=== PATIENT | male | born 1955 | race Caucasian/White ===

== ENCOUNTER → 2020-11-02 | Outpatient (CLI) | payer OTHER ==
[~2020-11-02] MED LIST: AMLO-186 PO; HYDR-2759 PO; LISI20TA18 PO; PANT40TA77 PO
== END ==
LOC: LAB 13:59
PROVIDERS: ATTEND Surgery
DX: Z01.812 Encounter for preprocedural laboratory examination (principal); K40.90 Unilateral inguinal hernia, without obstruction or gangrene, not specified as recurrent; Z20.822 Contact with and (suspected) exposure to COVID-19
CPT/HCPCS: U0003; U0005

== ENCOUNTER 2020-11-05 07:17 | Day surgery (SDC) | payer OTHER ==
[2020-11-02 17:11] VITALS: BP 142/62
[2020-11-02 17:12] VITALS: BP 142/62
[~2020-11-05] VITALS: Ht 175.3 cm; Wt 83.5 kg
[~2020-11-05 07:17] MED LIST changes: -AMLO-186 PO; -HYDR-2759 PO; +HYDROmorphone 2 MG/ML VIAL IVP PRN; +IV RINGERS,LACTATED 1000ML 1,000 ML IV SCH; -LISI20TA18 PO; +MORPHINE SULFATE 2 MG/ML INJ. IVP PRN; -PANT40TA77 PO; +PROCHLORPERAZINE 10 MG/2 ML VIAL. IVP PRN; +fentaNYL PF VIAL 100 MCG/2 ML VIAL IVP PRN
[2020-11-05] MEDS ORDERED: BUPIVACAINE-EPI 0.5%-1:200000 MPF 30 ML VIAL. ONE (07:27)
[2020-11-05 07:53] VITALS: BP 130/60
[2020-11-05] MEDS ORDERED: ONDANSETRON PF 4 MG/2 ML VIAL. ONE (07:58)
[2020-11-05] MEDS ORDERED: LIDOCAINE 2% PF 5 ML VIAL. ONE (07:58)
[2020-11-05] MEDS ORDERED: PROPOFOL 10 MG/ML (20ML) VIAL. IV ONE (07:58)
[2020-11-05] MEDS ORDERED: ROCURONIUM 50 MG/5 ML VIAL. ONE (07:58)
[2020-11-05] MEDS ORDERED: DEXAMETHASONE SOD PHOS 4 MG/ML VIAL ONE (07:59)
[2020-11-05] MEDS ORDERED: PANT40TA77 PO (07:59)
[2020-11-05] MEDS ORDERED: LISI20TA18 PO (07:59)
[2020-11-05] MEDS ORDERED: AMLO-186 PO (07:59)
[2020-11-05] MEDS ORDERED: fentaNYL PF VIAL 100 MCG/2 ML VIAL ONE (08:32)
[2020-11-05] MEDS ORDERED: GLYCOPYRROLATE 1 MG/5 ML VIAL. ONE (09:59)
[2020-11-05] MEDS ORDERED: NEOSTIGMINE METHYLSULFATE 5 MG/5 ML SYRINGE. ONE (10:00)
[2020-11-05] MEDS ORDERED: KETOROLAC 30 MG/ML VIAL. ONE (10:37)
--- NOTE | 2020-11-05 11:04 | PDOC4 ---
Operative Note Operative Note Operative Note: Preoperative Diagnosis: Left inguinal hernia Postoperative Diagnosis: Same Procedure: Left inguinal hernia repair with mesh Surgeon: Mario Precinct Captain: SANDI De Jesus Anesthesia: General EBL: 40 mL Specimen: None Drains: None Complications: None Indication: The patient is a 65-year-old male who is referred with a left inguinal hernia. He was offered surgical repair. The risks of surgery were discussed which include bleeding, infection, recurrence, pain or numbness, anesthetic risk, potential need for additional surgery procedure. He understands and would like to proceed. Description: The patient was taken to the operating room and placed supine on the operating table. General anesthesia was performed. The left groin was shaved and prepped with ChloraPrep and draped in a standard surgical manner. An incision was made in the skin lines with a scalpel. Cautery dissection was carried down to the external oblique aponeurosis. The aponeurosis was opened down to the external ring. The contents of the inguinal canal were digitally mo bilized and encircled with a Renetta drain. There was a moderate sized indirect hernia sac present. The sac was quite scarred into the surrounding tissues consistent with prominent chronic inflammation. Gradually we were able to mobilize the sac from the surrounding cord structures. The vas deferens and other structures were preserved. The entire sac was mobilized down to its base and inverted. The defect was filled with an extra-large Phasix mesh plug. The plug was sutured into position with 2-0 Vicryl. The inguinal floor was then reinforced with a Prolene keyhole mesh patch. The mesh was sutured in the inguinal floor with 2-0 Vicryl and a slit was made to accommodate the cord structures. The external oblique was closed over the mesh with 2-0 Vicryl. The subcutaneous tissue was closed with 3-0 Vicryl. Skin was approximated with 4-0 Monocryl and infiltrated with half percent Marcaine with epinephrine. Steri- Strips and a sterile dressing were applied. The patient tolerated the procedure well and was sent to the recovery room in stable condition. At the end of the case all counts were correct. MILTON OTT MD Nov 05, 2020 11:04
[2020-11-05] MEDS ORDERED: HYDR-2759 PO (11:06)
--- NOTE | 2020-11-05 11:08 | DISCH ---
DISCHARGE INSTRUCTIONS Condition on Discharge Condition on Discharge: Stable Activity After Discharge Activity Instructions for Disc: Other, see below (no lifting over 20 lbs, no driving while taking pain meds) Diet after Discharge Diet after Discharge: Regular Wound Incision Care Wound/Incision Care: Other, see below (keep dressing clean and dry X 72 hours, may then remove and shower) Follow-Up Follow up with: Dr Ott in 2 weeks in office, call for appointment [phone] MILTON OTT MD Nov 05, 2020 11:08
[2020-11-05] MEDS ORDERED: HYDROcodone/APAP 5/325MG 1 TAB TABLET PO ONE ×2 (11:30→11:45)
[2020-11-05] MEDS ORDERED: SEVOFLURANE 61 TO 120 MINUTES. IH ONE (12:00)
[2020-11-05 12:25] VITALS: BP 144/58
== END 2020-11-05 12:40 | disposition home or self-care (01) ==
LOC: SURG 07:17
PROVIDERS: ATTEND Surgery
DX: K40.90 Unilateral inguinal hernia, without obstruction or gangrene, not specified as recurrent (principal); I10 Essential (primary) hypertension; G47.30 Sleep apnea, unspecified; K21.9 Gastro-esophageal reflux disease without esophagitis; Z85.828 Personal history of other malignant neoplasm of skin; Z79.899 Other long term (current) drug therapy; Z98.890 Other specified postprocedural states; Z88.0 Allergy status to penicillin
CPT/HCPCS: 49505; A4930; C1781; J1100; J1885; J1956; J2405; J2704; J2710; J3010; J3490